=== PATIENT | male | born 1995 | race Caucasian/White ===

== ENCOUNTER 2017-03-06 20:58 | Emergency (ER) | payer MEDICAID, OTHER ==
[~2017-03-06] VITALS: Ht 172.7 cm; Wt 59.7 kg
[~2017-03-06 20:58] MED LIST: Z.0.NO CURRENT MEDS
[2017-03-06 21:03] VITALS: BP 124/58; PULSE 71; RESP 18; TEMP 98.5; O2SAT 97
[2017-03-06] MEDS ORDERED: ONDANSETRON ODT 4 MG TAB PO ONE (21:15)
[2017-03-06] MEDS ORDERED: ACETAMINOPHEN 325 MG TAB PO ONE (21:15)
[2017-03-06] MEDS ORDERED: ZOFR4TAB PO (21:16)
--- NOTE | 2017-03-06 21:26 | PD ---
HPI Chief Complaint: cellulitis Time Seen by Provider: 21:08 Travel History International Travel<30 days: No Contact w/Intl Traveler<30days: No Traveled to known affect area: No History of Present Illness HPI 21-year-old [id number] male presents for evaluation of cellulitis of the right arm. He reports that 2 days ago he woke up with an area of erythema and soft tissue swelling on the volar right forearm. He believes that he was bitten by a spider in the middle the night while he was sleeping. He was seen yesterday at [address] [place] [address] prior to this and prescribed Bactrim, Keflex, tramadol. He took the medication as prescribed this morning but became quite nauseous afterwards. At some point today the abscess spontaneously ruptured and drained some purulent drainage. He now presents for reevaluation. He reports that although the abscess is painful and draining, the actual area of redness has improved mildly. He has no fevers or chills. He denies any history of IV drug abuse. He has no other complaints at this time. [facility], [facility] Past Medical History ADHD: No Cancer: No Cardiovascular Problems: No Developmental Delay: No Diabetes: No Psychiatric: No Immunizations Current: Yes Migraines: No Pneumonia: Yes Seizures: No Thyroid Disease: No Ulcer: No Past Surgical History Tonsillectomy: Yes Social History Alcohol Use: No Tobacco Use: Yes (6 cigarettes wkly) Substance Use: No Allergies-Medications (Allergen,Severity, Reaction): Coded Allergies: Codeine (Verified Allergy, Intermediate, RASH, 02/29/12) Reported Meds & Prescriptions Reported Meds & Active Scripts Active Reported No Current Meds (Miscellaneous Medication) [facility] [place] Review of Systems Except as stated in HPI: all other systems reviewed are Neg Physical Exam Narrative GENERAL: Well-developed well-nourished male in no acute distress SKIN: Warm and dry. Mentation of the right forearm reveals an area of erythema , slight induration. There is a draining abscess that is approximately 1.5 cm in length on the volar aspect of the right arm. It appears to be draining quite well. There is no proximal streaking or axillary lymphadenopathy. HEAD: Atraumatic. Normocephalic. EYES: Pupils equal and round. No scleral icterus. No injection or drainage. ENT: No nasal bleeding or discharge. Mucous membranes pink and moist. NECK: Trachea midline. No JVD. CARDIOVASCULAR: Regular rate and rhythm. No murmur appreciated. RESPIRATORY: No accessory muscle use. Clear to auscultation. Breath sounds equal bilaterally. MUSCULOSKELETAL: Skin as noted above. NEUROLOGICAL: Awake and alert. No obvious cranial nerve deficits. Motor grossly within normal limits. Normal speech. Data Data Last Documented VS Vital Signs Date Time Temp Pulse Resp B/P Pulse Ox O2 Delivery O2 Flow Rate FiO2 03/06/17 21:03 98.5 71 18 124/58 97 Orders Ondansetron Odt (Zofran Odt) (03/06/17 21:15) Wound Culture And Gram Stain (03/06/17 21:15) Acetaminophen (Tylenol) (03/06/17 21:15) MDM Medical Decision Making Medical Screen Exam Complete: Yes Emergency Medical Condition: Yes Medical Record Reviewed: Yes Differential Diagnosis Cutaneous abscess, cellulitis, erysipelas, necrotizing fasciitis Narrative Course Examination is consistent with cellulitis the right forearm with a actively draining abscess. A wound culture was therefore performed. It seems that he is having some nausea secondary to the actual, Keflex and tramadol or prescribed yesterday at an outside emergency room. He will be therefore discharged with Zofran to help with nausea. Discussed signs and symptoms that would warrant return to the emergency room. He is stable for discharge. Diagnosis Primary Impression: Right forearm cellulitis Additional Impression: Abscess of right forearm Additional Instructions: Take the antibiotics as prescribed previously. Zofran for nausea. Warm compresses several times a day 10-15 minutes at a time. Return for evidence of worsening infection such as fevers, increasing redness. Med/Other Pt SpecificInfo: Prescription(s) given, Wound Care Scripts Ondansetron (Zofran)4 Mg Tab4 Mg PO Q6HR PRN (NAUSEA OR VOMITING) 10 Days Ref 0 Prov:Werner Núñez MD 03/06/17 Disposition: 01 DISCHARGE HOME Condition: Stable Eligio Peters Mar 06, 2017 21:25
[2017-03-06] MEDS ORDERED: BACT400T PO (21:33)
[2017-03-06] MEDS ORDERED: CEPH500C PO (21:33)
[2017-03-06] MEDS ORDERED: TRAM50TA PO (21:33)
== END 2017-03-06 21:34 | disposition home or self-care (01) ==
LOC: PHEFT 20:58
DX: L03.113 Cellulitis of right upper limb (principal); L02.413 Cutaneous abscess of right upper limb; B95.62 Methicillin resistant Staphylococcus aureus infection as the cause of diseases classified elsewhere
CPT/HCPCS: 86403; 87070; 87186; 87205; 99283